=== PATIENT | female | born 1965 | race Two or more races ===

== ENCOUNTER 2018-03-23 21:17 | Emergency (ER) | payer OTHER ==
[~2018-03-23] VITALS: Ht 167.6 cm; Wt 68.0 kg
[~2018-03-23 21:17] MED LIST: DEXILANT60 MG
[2018-03-23] MEDS ORDERED: SYNTHROID75 MCG (21:34)
[2018-04-03] MEDS ORDERED: CEPHALEXIN500 M1 PO (08:25)
== END 2018-03-23 23:15 | disposition home or self-care (01) ==
LOC: ER 21:17
DX: S61.213A Laceration without foreign body of left middle finger without damage to nail, initial encounter (principal); W26.0XXA Contact with knife, initial encounter; Y93.89 Activity, other specified; Y92.090 Kitchen in other non-institutional residence as the place of occurrence of the external cause; Y99.8 Other external cause status

== ENCOUNTER 2018-04-08 05:30 | Day surgery (SDC) | payer OTHER ==
[~2018-04-08 05:30] MED LIST changes: +CEPHALEXIN500 M1 PO; +SYNTHROID75 MCG
== END 2018-04-08 11:35 | disposition home or self-care (01) ==
LOC: CIR.AMB 05:30
DX: S64.496A Injury of digital nerve of right little finger, initial encounter (principal); S66.126A Laceration of flexor muscle, fascia and tendon of right little finger at wrist and hand level, initial encounter

== ENCOUNTER 2025-02-28 23:02 | Emergency (ER) | payer OTHER ==
[~2025-02-28] VITALS: Ht 167.6 cm; Wt 56.2 kg
[~2025-02-28 23:02] MED LIST changes: +DEXILANT60 MG PO; +SYNTHROID50 MCG PO
[2025-03-01 00:50] VITALS: BP 111/63; O2SAT 98
== END 2025-03-01 | disposition left against medical advice (07) ==
LOC: ER 23:03
DX: Z53.21 Procedure and treatment not carried out due to patient leaving prior to being seen by health care provider (principal)